=== PATIENT | female | born 1965 | race Caucasian/White ===

== ENCOUNTER 2023-09-03 07:12 | Emergency (ER) | payer OTHER, BC ==
[~2023-09-03] VITALS: Ht 162.6 cm; Wt 74.8 kg
[~2023-09-03 07:12] MED LIST: ACET500; ALBU90OI INH; AMOX500 PO; HYDACE5 PO; LORA.5 PO
[2023-09-03] MEDS ORDERED: HYDR1TAB94 PO ×3 (09:23→10:25)
[2023-09-03 10:38] VITALS: BP 118/61
== END 2023-09-03 10:39 | disposition home or self-care (01) ==
LOC: ER 07:12
DX: S82.854A Nondisplaced trimalleolar fracture of right lower leg, initial encounter for closed fracture (principal); F17.200 Nicotine dependence, unspecified, uncomplicated; W01.10XA Fall on same level from slipping, tripping and stumbling with subsequent striking against unspecified object, initial encounter; X50.1XXA Overexertion from prolonged static or awkward postures, initial encounter; Z79.899 Other long term (current) drug therapy
CPT/HCPCS: 29515; 73610; 99283-25; A9270

== ENCOUNTER 2023-09-08 08:12 | Day surgery (SDC) | payer OTHER, BC ==
[~2023-09-08] VITALS: Ht 165.1 cm; Wt 82.0 kg
[~2023-09-08 08:12] MED LIST changes: +Bupivacaine 0.5% HCl 5 MG/ML 30MLVIAL ONE; +Dexamethasone Sod Phos 10 MG/ML 1ML VIAL ONE; +EPINEPhrine HCl 1 MG/ML 1ML Amp ONE; +FentaNYL Citrate 50 MCG/ML 2 ML Injection ONE; +HYDR1TAB94 PO; +Midazolam HCl 1MG / ML 2ML Vial ONE; +Ondansetron HCl 2 MG / ML 2ML Vial ONE; +Ropivacaine 0.5% HCl/Pf 5 MG/ML 20ML VIAL ONE; +propofoL 20 ML IV ONE
[2023-09-08] MEDS ORDERED: Lidocaine HCl 4% 5 ML SDA ONE (08:17)
[2023-09-08] MEDS ORDERED: Lactated Ringer's 1,000 ML IV ONE ×2 (08:50→08:51)
[2023-09-08] MEDS ORDERED: NS 0 ML IV ONE (08:51)
[2023-09-08] MEDS ORDERED: CeFAZolin Sodium 2,000 MG VIAL ONE (08:51)
[2023-09-08] MEDS ORDERED: Midazolam HCl 1MG / ML 2ML Vial ONE (09:18)
--- NOTE | 2023-09-08 09:41 | NUR ---
09/08/23 0941 Rizwana Wheatley PERFORMED BY IN PREOP. TIME OUT START AT 0920.
--- NOTE | 2023-09-08 10:10 | NUR ---
09/08/23 1010 Tali Truong ROPIVACAINE 0.5% 20MLS MIXED AND VERIFIED W/ EPI 0.1ML TO MAKE ROPIVACAINE 0.5% 1:200,000 FOR INJECTION AT OPSITE
[2023-09-08 11:33] VITALS: BP 136/81
== END 2023-09-08 12:40 | disposition home or self-care (01) ==
LOC: ORSCSDS 08:12
PROVIDERS: Orthopaedic Surgery
PROC: 0QSG04Z Reposition Right Tibia with Internal Fixation Device, Open Approach (ICD-10-PCS; principal; 2023-09-08 09:30)
PROC: 0QSJ04Z Reposition Right Fibula with Internal Fixation Device, Open Approach (ICD-10-PCS; principal; 2023-09-08 09:30)
DX: S82.851A Displaced trimalleolar fracture of right lower leg, initial encounter for closed fracture (principal); W01.0XXA Fall on same level from slipping, tripping and stumbling without subsequent striking against object, initial encounter; J45.909 Unspecified asthma, uncomplicated; Z79.899 Other long term (current) drug therapy
CPT/HCPCS: C1713; C1769; J0171; J0690; J1100; J2001; J2250; J2405; J2704; J2795; J3010; J7120